=== PATIENT | female | born 1955 | race African-American/Black ===

== ENCOUNTER → 2017-04-13 | Outpatient (CLI) | payer BC ==
[2017-04-13 14:25] LABS: CLARITY URINE CLEAR (CLEAR); COLOR URINE YELLOW (YELLOW); GLUCOSE URINE NEGATIVE (NEGATIVE); KETONES URINE NEGATIVE (NEGATIVE); LEUKOCYTE ESTERASE URINE 1+ (NEGATIVE); NITRITE URINE NEGATIVE (NEGATIVE); OCCULT BLOOD URINE NEGATIVE (NEGATIVE); PH URINE 7.5 (4.5-8.0); PROTEIN URINE TRACE (NEGATIVE); SPECIFIC GRAVITY URINE 1.033 (1.005-1.030)
[2017-04-13 14:26] LABS: BASOPHILS % 0.6 % (0.0-2.0); EOSINOPHILS % 3.4 % (0.0-5.0); HEMATOCRIT. 35.4 % (36.0-48.0); HEMOGLOBIN. 11.4 g/dL (12.0-16.0); LYMPHOCYTES % 45.7 % (20.0-50.0); MEAN CORPUSCULAR HEMOGLOBIN 26.7 pg (28.0-32.0); MEAN CORPUSCULAR HGB CONC 32.1 g/dL (31.0-37.0); MEAN CORPUSCULAR VOLUME 83.4 fL (81.0-99.0); MEAN PLATELET VOLUME 8.8 fl (7.4-10.4); MONOCYTES % 7.9 % (2.0-8.0); NEUTROPHILS % 42.4 % (40.0-76.0); PLATELET 178 x1000/uL (130-400); RED BLOOD CELL COUNT 4.24 mill/uL (4.2-5.4); RED CELL DISTRIBUTION WIDTH 13.4 % (11.6-14.6); WHITE BLOOD COUNT 4.4 x1000/uL (4.5-11.0)
[2017-04-13 14:57] LABS: ANION GAP 8; CALCIUM 9.4 mg/dL (8.5-10.1); CARBON DIOXIDE 30 mEq/L (21-32); CHLORIDE 109 mEq/L (98-107); HDL CHOLESTEROL 56 mg/dL (40-59); INDEX HEMOLYSI 1 (1-3); INDEX ICTERIC 1 (1-4); INDEX LIPEMIC 1 (1-3); LDL CHOLESTEROL 94 mg/dL (5-100); THYROID STIMULATING HORMONE 0.31 uIU/mL (0.36-3.74); TRIGLYCERIDE 59 mg/dL (0-150); UREA NITROGEN BLOOD 11 mg/dL (7-21); eGFR > 60 mL/min (>60)
[2017-04-13 15:01] LABS: BACTERIA URINE TRACE; RBC URINE 0-2 /hpf (0-2); SQUAMOUS EPITHELIAL CELL URINE 1+ /lpf (RARE/1+); WBC URINE 0-2 /hpf (0-2)
== END | disposition home or self-care (01) ==
LOC: MAMMO 12:58
PROVIDERS: ATTEND Internal Medicine Nephrology
DX: Z12.31 Encounter for screening mammogram for malignant neoplasm of breast (principal)
CPT/HCPCS: 36415; 80048; 80061; 81001; 84443; 85025; G0202

== ENCOUNTER → 2017-04-18 | Outpatient (CLI) | payer BC | END | disposition home or self-care (01) | LOC: LAB 13:45 | PROVIDERS: ATTEND Internal Medicine Nephrology | DX: R06.02 Shortness of breath (principal) | CPT/HCPCS: 71010 ==

== ENCOUNTER 2017-10-26 10:42 | Emergency (ER) | payer BC ==
[~2017-10-26] VITALS: Ht 165.1 cm; Wt 70.0 kg
[2017-10-26] MEDS ORDERED: ACETAMINOPHEN WITH CODEINE 300/30MG TABLET PO STA (10:46)
[2017-10-26 11:28] LABS: BASOPHILS % 0.4 % (0.0-2.0); EOSINOPHILS % 1.4 % (0.0-5.0); HEMATOCRIT. 38.1 % (36.0-48.0); HEMOGLOBIN. 12.6 g/dL (12.0-16.0); LYMPHOCYTES % 32.2 % (20.0-50.0); MEAN CORPUSCULAR HEMOGLOBIN 27.7 pg (28.0-32.0); MEAN CORPUSCULAR VOLUME 83.6 fL (81.0-99.0); MONOCYTES % 7.8 % (2.0-8.0); NEUTROPHILS % 58.2 % (40.0-76.0); PLATELET 162 x1000/uL (130-400); RED BLOOD CELL COUNT 4.55 mill/uL (4.2-5.4); RED CELL DISTRIBUTION WIDTH 14.1 % (11.6-14.6)
[2017-10-26 11:33] LABS: CHLORIDE 98 mEq/L (98-107); PROTHROMBIN TIME 10.8 sec (9.4-11.6)
[2017-10-26 11:41] LABS: CARBON DIOXIDE 30 mEq/L (21-32)
[2017-10-26] MEDS ORDERED: POTASSIUM CHLORIDE 20MEQ TABLET SR PO ONE (11:45)
[2017-10-26 12:40] VITALS: BP 148/85
== END 2017-10-26 12:41 | disposition home or self-care (01) ==
LOC: ER 10:46
DX: S63.91XA Sprain of unspecified part of right wrist and hand, initial encounter (principal); R55 Syncope and collapse; I10 Essential (primary) hypertension; W19.XXXA Unspecified fall, initial encounter; Y93.89 Activity, other specified; Y92.89 Other specified places as the place of occurrence of the external cause; Y99.8 Other external cause status
CPT/HCPCS: 36415; 73130; 80053; 85025; 85610; 93005; 99285; Z7610

== ENCOUNTER 2017-10-30 21:53 | Inpatient (IN) | payer BC ==
[~2017-10-30] VITALS: Ht 160 cm; Wt 71.4 kg
[2017-10-30] MEDS ORDERED: SODIUM CHLORIDE 0.9% 1,000 ML IV ONE (22:39)
[2017-10-30 22:59] LABS: BASOPHILS % 0.8 % (0.0-2.0); EOSINOPHILS % 1.7 % (0.0-5.0); HEMATOCRIT. 34.2 % (36.0-48.0); HEMOGLOBIN. 11.1 g/dL (12.0-16.0); LYMPHOCYTES % 34.2 % (20.0-50.0); MEAN CORPUSCULAR HEMOGLOBIN 26.9 pg (28.0-32.0); MEAN CORPUSCULAR VOLUME 83.1 fL (81.0-99.0); MEAN PLATELET VOLUME 8.7 fl (7.4-10.4); MONOCYTES % 7.6 % (2.0-8.0); NEUTROPHILS % 55.7 % (40.0-76.0); PLATELET 145 x1000/uL (130-400); RED BLOOD CELL COUNT 4.11 mill/uL (4.2-5.4); RED CELL DISTRIBUTION WIDTH 13.9 % (11.6-14.6)
[2017-10-30 23:02] LABS: CHLORIDE 103 mEq/L (98-107)
[2017-10-30 23:08] LABS: CARBON DIOXIDE 29 mEq/L (21-32)
[2017-10-30 23:12] LABS: TROPONIN I < 0.02 ng/mL (0.00-0.04)
[2017-10-31] VITALS (9 sets, daily range): BP systolic 131–159; BP diastolic 64–94
[2017-10-31] MEDS ORDERED: SODIUM CHLORIDE 0.9% 1,000 ML IV SCH (00:25)
[2017-10-31] MEDS ORDERED: TRIA1TAB92 PO (09:46)
[2017-10-31] MEDS ORDERED: DORZ10DR7 EACHEYE (09:48)
[2017-10-31] MEDS ORDERED: IBUP-2028 PO (09:50)
[2017-10-31] MEDS ORDERED: MORPHINE SULFATE 2 MG/ML CPJ (NOT FOR IM USE) IV PRN ×2 (10:00→12:30)
[2017-10-31] MEDS ORDERED: ACETAMINOPHEN 325MG TABLET PO PRN (12:30)
[2017-10-31] MEDS ORDERED: LORAZEPAM 0.5MG TABLET PO PRN (12:30)
[2017-10-31] MEDS ORDERED: CLONIDINE 0.1MG TABLET PO PRN (12:30)
[2017-10-31] MEDS ORDERED: ONDANSETRON HCL 4MG/2ML VIAL IV PRN (12:30)
[2017-10-31] MEDS ORDERED: HYDROCODONE/ACETAMINOPHEN 5/325MG TABLET PO PRN (12:30)
[2017-10-31 12:31] LABS: CREATINE KINASE 201 IU/L (26-192); TROPONIN I < 0.02 ng/mL (0.00-0.04)
[2017-10-31] MEDS ORDERED: IBUPROFEN 400MG TABLET PO PRN (13:15)
[2017-10-31] MEDS ORDERED: POTASSIUM CHLORIDE 20MEQ TABLET SR PO NR (13:30)
[2017-10-31] MEDS: THIAMINE HCL 100MG TABLET PO SCH (14:28)
[2017-10-31] MEDS: ENOXAPARIN 40MG/0.4ML SYR SUBCUT SCH (14:30)
[2017-10-31] MEDS ORDERED: TRIAMTERENE/HYDROCHLOROTHIAZID 75/50MG TABLET PO SCH (15:00)
[2017-10-31] MEDS ORDERED: DORZOLAMIDE 2% OPHTH 10 ML BOTTLE EACHEYE SCH (15:00)
[2017-10-31] MEDS ORDERED: REGADENOSON 0.4 MG/5 ML IV NR (15:30)
[2017-10-31] MEDS ORDERED: TRIAMTERENE/HYDROCHLOROTHIAZIDE 37.5/25MG CAPSULE PO SCH (15:45)
[2017-10-31] MEDS: ASPIRIN 81MG EC TABLET PO SCH (16:45)
[2017-10-31 18:23] LABS: CLARITY URINE CLEAR (CLEAR); COLOR URINE YELLOW (YELLOW); GLUCOSE URINE NEGATIVE (NEGATIVE); KETONES URINE NEGATIVE (NEGATIVE); LEUKOCYTE ESTERASE URINE NEGATIVE (NEGATIVE); NITRITE URINE NEGATIVE (NEGATIVE); OCCULT BLOOD URINE NEGATIVE (NEGATIVE); PROTEIN URINE NEGATIVE (NEGATIVE); SPECIFIC GRAVITY URINE 1.012 (1.005-1.030); UROBILINOGEN URINE 0.2 E.U./dL (0.2-1.0)
[2017-10-31 19:24] LABS: *AMPHETAMINES SCREEN URINE NEGATIVE (NEGATIVE); *BARBITURATES SCREEN URINE NEGATIVE (NEGATIVE); *BENZODIAZEPINES SCREEN URINE NEGATIVE (NEGATIVE); *COCAINE SCREEN URINE NEGATIVE (NEGATIVE); CANNABINOID URINE SCREEN NEGATIVE (NEGATIVE); METHADONE URINE SCREEN NEGATIVE (NEGATIVE); OPIATES URINE SCREEN NEGATIVE (NEGATIVE); PHENCYCLIDINE URINE SCREEN NEGATIVE (NEGATIVE)
[2017-10-31] MEDS: AMLODIPINE 5MG TABLET PO SCH (21:11)
[2017-10-31] MEDS: DORZOLAMIDE 2% OPHTH 10 ML BOTTLE EACHEYE SCH (22:33)
[2017-10-31] MEDS ORDERED: IOHEXOL-300 100 ML BOTTLE ONE (23:15)
[2017-11-01] VITALS (7 sets, daily range): BP systolic 128–144; BP diastolic 78–90
[2017-11-01] MEDS: DORZOLAMIDE 2% OPHTH 10 ML BOTTLE EACHEYE SCH (06:21)
[2017-11-01 07:23] LABS: BASOPHILS % 0.6 % (0.0-2.0); EOSINOPHILS % 2.6 % (0.0-5.0); HEMATOCRIT. 34.6 % (36.0-48.0); HEMOGLOBIN. 11.4 g/dL (12.0-16.0); LYMPHOCYTES % 41.8 % (20.0-50.0); MEAN CORPUSCULAR HEMOGLOBIN 27.5 pg (28.0-32.0); MEAN CORPUSCULAR VOLUME 83.3 fL (81.0-99.0); MEAN PLATELET VOLUME 9.3 fl (7.4-10.4); MONOCYTES % 7.4 % (2.0-8.0); NEUTROPHILS % 47.6 % (40.0-76.0); PLATELET 150 x1000/uL (130-400); RED BLOOD CELL COUNT 4.16 mill/uL (4.2-5.4); RED CELL DISTRIBUTION WIDTH 13.7 % (11.6-14.6)
[2017-11-01 08:19] LABS: CARBON DIOXIDE 29 mEq/L (21-32); CHLORIDE 108 mEq/L (98-107)
[2017-11-01 08:26] LABS: HDL CHOLESTEROL 57 mg/dL (40-59); LDL CHOLESTEROL 71 mg/dL (5-100); TROPONIN I < 0.02 ng/mL (0.00-0.04)
[2017-11-01] MEDS: ASPIRIN 81MG EC TABLET PO SCH (08:58)
[2017-11-01] MEDS: THIAMINE HCL 100MG TABLET PO SCH (08:59)
[2017-11-01] MEDS ORDERED: FERROUS SULFATE 325MG TABLET PO SCH (09:00)
[2017-11-01] MEDS: AMLODIPINE 5MG TABLET PO SCH (09:05)
[2017-11-01] MEDS: ENOXAPARIN 40MG/0.4ML SYR SUBCUT SCH (09:07)
[2017-11-01] MEDS ORDERED: REGADENOSON 0.4 MG/5 ML IV ONE (11:15)
== END 2017-11-01 15:10 | disposition home or self-care (01) | DRG 74 ==
LOC: ER 22:32 → 5WST 10-31 00:28 → EDBEDREQTM 10-31 00:31 → EDBEDREQ 10-31 00:31 → ENRESERV 10-31 06:43
PROVIDERS: ADMIT Internal Medicine Nephrology; ATTEND Internal Medicine Nephrology
DX: G90.8 Other disorders of autonomic nervous system (principal); I11.9 Hypertensive heart disease without heart failure; E11.9 Type 2 diabetes mellitus without complications; I44.0 Atrioventricular block, first degree; R53.83 Other fatigue; E87.6 Hypokalemia; R53.1 Weakness; I25.9 Chronic ischemic heart disease, unspecified; M17.0 Bilateral primary osteoarthritis of knee; Z91.81 History of falling
CPT/HCPCS: 36415; 70470; 78452; 80048; 80053; 80061; 80305; 81003; 82550; 82553; 83690; 83735; 84443; 84484; 85025; 93005; 93017; 96360; 99285; A9500; J1650; J2785; J7030; Q9967

== ENCOUNTER 2017-12-19 11:28 | Emergency (ER) | payer BC ==
[~2017-12-19] VITALS: Ht 165.1 cm; Wt 71.0 kg
[~2017-12-19 11:28] MED LIST: DORZ10DR7 EACHEYE; IBUP-2028 PO; TRIA1TAB92 PO
[2017-12-19 15:52] VITALS: BP 122/84
== END 2017-12-19 15:57 | disposition home or self-care (01) ==
LOC: ER 13:23
DX: F41.9 Anxiety disorder, unspecified (principal); E11.9 Type 2 diabetes mellitus without complications; I10 Essential (primary) hypertension
CPT/HCPCS: 93005; 99284

== ENCOUNTER → 2018-02-21 | Outpatient (CLI) | payer BC | END | disposition home or self-care (01) | LOC: MRI 09:58 | PROVIDERS: ATTEND Internal Medicine Nephrology | DX: M48.02 Spinal stenosis, cervical region (principal) | CPT/HCPCS: 72141 ==

== ENCOUNTER → 2018-06-26 | Outpatient (CLI) | payer BC ==
[~2018-06-26] MED LIST changes: -DORZ10DR7 EACHEYE; +DORZ10DR8 EACHEYE
[2018-06-26 11:01] LABS: BASOPHILS % 0.7 % (0.0-2.0); EOSINOPHILS % 2.2 % (0.0-5.0); HEMATOCRIT. 31.7 % (36.0-48.0); HEMOGLOBIN. 10.7 g/dL (12.0-16.0); LYMPHOCYTES % 54.3 % (20.0-50.0); MEAN CORPUSCULAR HEMOGLOBIN 28.4 pg (28.0-32.0); MEAN CORPUSCULAR VOLUME 84.5 fL (81.0-99.0); MEAN PLATELET VOLUME 8.1 fl (7.4-10.4); MONOCYTES % 7.8 % (2.0-8.0); PLATELET 174 x1000/uL (130-400); RED BLOOD CELL COUNT 3.75 mill/uL (4.2-5.4); RED CELL DISTRIBUTION WIDTH 15.3 % (11.6-14.6)
[2018-06-26 11:02] LABS: CLARITY URINE CLEAR (CLEAR); COLOR URINE YELLOW (YELLOW); KETONES URINE NEGATIVE (NEGATIVE); LEUKOCYTE ESTERASE URINE NEGATIVE (NEGATIVE); NITRITE URINE NEGATIVE (NEGATIVE); OCCULT BLOOD URINE NEGATIVE (NEGATIVE); PH URINE 8.5 (4.5-8.0); PROTEIN URINE TRACE (NEGATIVE); SPECIFIC GRAVITY URINE 1.026 (1.005-1.030); UROBILINOGEN URINE 0.2 E.U./dL (0.2-1.0)
[2018-06-26 11:24] LABS: CHLORIDE 108 mEq/L (98-107)
[2018-06-26 11:45] LABS: VITAMIN B12 SERUM 997 pg/mL (211-911)
== END | disposition home or self-care (01) ==
LOC: LAB 10:19
PROVIDERS: ATTEND Internal Medicine Nephrology
DX: J03.90 Acute tonsillitis, unspecified (principal); E11.9 Type 2 diabetes mellitus without complications; I11.0 Hypertensive heart disease with heart failure; I50.9 Heart failure, unspecified
CPT/HCPCS: 36415; 80053; 80076; 81003; 82607; 85025

== ENCOUNTER → 2019-01-30 | Outpatient (CLI) | payer BC ==
[2019-01-30 08:25] LABS: CLARITY URINE CLEAR (CLEAR); COLOR URINE YELLOW (YELLOW); KETONES URINE NEGATIVE (NEGATIVE); LEUKOCYTE ESTERASE URINE NEGATIVE (NEGATIVE); NITRITE URINE NEGATIVE (NEGATIVE); OCCULT BLOOD URINE NEGATIVE (NEGATIVE); PROTEIN URINE NEGATIVE (NEGATIVE); SPECIFIC GRAVITY URINE 1.025 (1.005-1.030); UROBILINOGEN URINE 0.2 E.U./dL (0.2-1.0)
[2019-01-30 08:31] LABS: BASOPHILS % 0.7 % (0.0-2.0); EOSINOPHILS % 1.7 % (0.0-5.0); HEMATOCRIT. 35.9 % (36.0-48.0); HEMOGLOBIN. 11.6 g/dL (12.0-16.0); LYMPHOCYTES % 45.6 % (20.0-50.0); MEAN CORPUSCULAR HEMOGLOBIN 27.2 pg (28.0-32.0); MEAN CORPUSCULAR VOLUME 83.7 fL (81.0-99.0); MEAN PLATELET VOLUME 9.2 fl (7.4-10.4); MONOCYTES % 6.3 % (2.0-8.0); NEUTROPHILS % 45.7 % (40.0-76.0); PLATELET 163 x1000/uL (130-400); RED BLOOD CELL COUNT 4.28 mill/uL (4.2-5.4); RED CELL DISTRIBUTION WIDTH 13.1 % (11.6-14.6)
[2019-01-30 08:32] LABS: CHLORIDE 107 mEq/L (98-107)
[2019-01-30 11:31] LABS: VITAMIN B12 SERUM 1118 pg/mL (211-911)
== END | disposition home or self-care (01) ==
LOC: LAB 07:47
PROVIDERS: ATTEND Internal Medicine Nephrology
DX: J30.1 Allergic rhinitis due to pollen (principal)
CPT/HCPCS: 36415; 80048; 82306; 82607; 83735; 84443

== ENCOUNTER → 2019-06-12 | Outpatient (CLI) | payer BC ==
[2019-06-12 17:24] LABS: CLARITY URINE CLEAR (CLEAR); COLOR URINE YELLOW (YELLOW); KETONES URINE NEGATIVE (NEGATIVE); LEUKOCYTE ESTERASE URINE 1+ (NEGATIVE); NITRITE URINE NEGATIVE (NEGATIVE); OCCULT BLOOD URINE NEGATIVE (NEGATIVE); PROTEIN URINE NEGATIVE (NEGATIVE); SPECIFIC GRAVITY URINE 1.021 (1.005-1.030); UROBILINOGEN URINE 0.2 E.U./dL (0.2-1.0)
[2019-06-12 17:43] LABS: BASOPHILS % 0.6 % (0.0-2.0); CHLORIDE 104 mEq/L (98-107); HEMATOCRIT. 38.1 % (36.0-48.0); HEMOGLOBIN. 12.4 g/dL (12.0-16.0); LYMPHOCYTES % 48.3 % (20.0-50.0); MEAN CORPUSCULAR HEMOGLOBIN 27.3 pg (28.0-32.0); MEAN CORPUSCULAR VOLUME 83.6 fL (81.0-99.0); MEAN PLATELET VOLUME 8.9 fl (7.4-10.4); MONOCYTES % 8.4 % (2.0-8.0); NEUTROPHILS % 40.7 % (40.0-76.0); PLATELET 174 x1000/uL (130-400); RED BLOOD CELL COUNT 4.56 mill/uL (4.2-5.4); RED CELL DISTRIBUTION WIDTH 13.9 % (11.6-14.6)
[2019-06-12 17:50] LABS: LDL CHOLESTEROL 98 mg/dL (5-100)
[2019-06-12 17:51] LABS: HDL CHOLESTEROL 66 mg/dL (40-59)
[2019-06-12 18:20] LABS: VITAMIN B12 SERUM 1205 pg/mL (211-911)
== END | disposition home or self-care (01) ==
LOC: LAB 16:48
PROVIDERS: ATTEND Internal Medicine Nephrology
DX: I10 Essential (primary) hypertension (principal); E11.9 Type 2 diabetes mellitus without complications
CPT/HCPCS: 36415; 80061; 82607; 83036

== ENCOUNTER → 2019-06-14 | Outpatient (CLI) | payer BC | END | disposition home or self-care (01) | LOC: MRI 07:52 | PROVIDERS: ATTEND Internal Medicine Nephrology | DX: M17.11 Unilateral primary osteoarthritis, right knee (principal); M54.12 Radiculopathy, cervical region | CPT/HCPCS: 72141; 73562 ==

== ENCOUNTER → 2019-08-17 | Outpatient (CLI) | payer BC | END | disposition home or self-care (01) | LOC: US 14:40 | PROVIDERS: ATTEND Internal Medicine Nephrology | DX: E04.2 Nontoxic multinodular goiter (principal) | CPT/HCPCS: 76536 ==

== ENCOUNTER → 2019-08-31 | Outpatient (CLI) | payer BC ==
[2019-08-31 16:06] LABS: BASOPHILS % 0.7 % (0.0-2.0); EOSINOPHILS % 3.1 % (0.0-5.0); HEMATOCRIT. 34.9 % (36.0-48.0); HEMOGLOBIN. 11.3 g/dL (12.0-16.0); LYMPHOCYTES % 34.5 % (20.0-50.0); MEAN CORPUSCULAR HEMOGLOBIN 27.3 pg (28.0-32.0); MEAN CORPUSCULAR VOLUME 84.2 fL (81.0-99.0); MEAN PLATELET VOLUME 9.8 fl (7.4-10.4); MONOCYTES % 8.2 % (2.0-8.0); NEUTROPHILS % 53.5 % (40.0-76.0); PLATELET 146 x1000/uL (130-400); RED BLOOD CELL COUNT 4.14 mill/uL (4.2-5.4); RED CELL DISTRIBUTION WIDTH 14.3 % (11.6-14.6)
[2019-08-31 16:34] LABS: CHLORIDE 110 mEq/L (98-107)
[2019-08-31 16:40] LABS: PHOSPHORUS 3.1 mg/dL (2.5-4.9)
[2019-08-31 16:41] LABS: HDL CHOLESTEROL 69 mg/dL (40-59)
[2019-08-31 16:42] LABS: LDL CHOLESTEROL 85 mg/dL (5-100)
[2019-08-31 16:44] LABS: CREATINE KINASE 336 IU/L (26-192)
[2019-08-31 16:45] LABS: TOTAL IRON BINDING CAPACITY 353 ug/dL (250-450)
[2019-08-31 16:47] LABS: T4 FREE 1.09 ng/dL (0.76-1.46)
[2019-08-31 17:09] LABS: FOLIC ACID (FOLATE) SERUM >20 ng/mL ng/mL (>5.38)
[2019-08-31 17:13] LABS: FERRITIN 39 ng/mL (10-291)
[2019-08-31 17:19] LABS: VITAMIN B12 SERUM 1108 pg/mL (211-911)
[2019-09-02 09:09] LABS: RF PROFILE 11.4 IU/mL (0.0-13.9)
[2019-09-04 09:06] LABS: VITAMIN D 25-OH 24.8 ng/mL (30.0-100.0)
[2019-09-04 19:06] LABS: CCP IgG/IgA PROFILE 8 units (0-19)
[2019-09-05 06:10] LABS: ANTI-NUCLEAR ANTIBODIES DIRECT Negative (Negative); METHYLMALONIC ACID 94 nmol/L (0-378)
== END | disposition home or self-care (01) ==
LOC: LAB 15:12
PROVIDERS: ATTEND Internal Medicine Endocrinology, Diabetes & Metabolism
DX: E11.9 Type 2 diabetes mellitus without complications (principal); R53.83 Other fatigue; D64.9 Anemia, unspecified; E55.9 Vitamin D deficiency, unspecified
CPT/HCPCS: 36415; 80061; 82306; 82550; 82607; 82728; 82746; 83036; 83540; 83550; 83735; 83921; 83970; 84100; 84439; 84443; 85651; 86038; 86140; 86200; 86431; 86800

== ENCOUNTER → 2019-09-13 | Outpatient (CLI) | payer BC ==
[~2019-09-13] MED LIST changes: +LIDOCAINE HCL 1% 20ML VIAL (Pyxis) INJ ONE; +SODIUM BICARBONATE 4% (2.4MEQ) 5ML VIAL IV ONE
== END | disposition home or self-care (01) ==
LOC: US 13:08
PROVIDERS: ATTEND Internal Medicine Endocrinology, Diabetes & Metabolism
DX: E04.2 Nontoxic multinodular goiter (principal); Z79.899 Other long term (current) drug therapy
CPT/HCPCS: 10005; 88172; 88173; J3490; Z7610

== ENCOUNTER 2020-07-02 15:56 | Emergency (ER) | payer BC, MEDICARE ==
[~2020-07-02] VITALS: Ht 195.6 cm; Wt 68.0 kg
[~2020-07-02 15:56] MED LIST changes: -LIDOCAINE HCL 1% 20ML VIAL (Pyxis) INJ ONE; -SODIUM BICARBONATE 4% (2.4MEQ) 5ML VIAL IV ONE
[2020-07-02 17:43] LABS: BASOPHILS % 0.5 % (0.0-2.0); EOSINOPHILS % 1.2 % (0.0-5.0); HEMATOCRIT. 38.1 % (36.0-48.0); HEMOGLOBIN. 12.6 g/dL (12.0-16.0); LYMPHOCYTES % 33.4 % (20.0-50.0); MEAN CORPUSCULAR HEMOGLOBIN 27.2 pg (28.0-32.0); MEAN CORPUSCULAR VOLUME 82.3 fL (81.0-99.0); MEAN PLATELET VOLUME 9.7 fl (7.4-10.4); MONOCYTES % 8.7 % (2.0-8.0); NEUTROPHILS % 56.2 % (40.0-76.0); PLATELET 159 x1000/uL (130-400); RED BLOOD CELL COUNT 4.63 mill/uL (4.2-5.4); RED CELL DISTRIBUTION WIDTH 14.3 % (11.6-14.6)
[2020-07-02 17:47] LABS: CHLORIDE 104 mEq/L (98-107)
[2020-07-02] MEDS: POTASSIUM CHLORIDE 20MEQ TABLET SR PO NR (19:28)
[2020-07-02 23:08] VITALS: BP 140/87
== END 2020-07-02 23:09 | disposition home or self-care (01) ==
LOC: ER 16:14
DX: R00.2 Palpitations (principal); E87.6 Hypokalemia; I10 Essential (primary) hypertension; E11.9 Type 2 diabetes mellitus without complications; E03.9 Hypothyroidism, unspecified
CPT/HCPCS: 36415; 71045; 80053; 83880; 84443; 84484; 85025; 99284

== ENCOUNTER 2020-08-27 17:29 | Inpatient (IN) | payer MEDICARE ==
[~2020-08-27] VITALS: Ht 165.1 cm; Wt 80.3 kg
[2020-08-27 18:37] LABS: BASOPHILS % 0.8 % (0.0-2.0); EOSINOPHILS % 1.2 % (0.0-5.0); HEMOGLOBIN. 10.1 g/dL (12.0-16.0); MEAN PLATELET VOLUME 9.6 fl (7.4-10.4); MONOCYTES % 5.6 % (2.0-8.0); NEUTROPHILS % 68.4 % (40.0-76.0); PLATELET 177 x1000/uL (130-400); RED BLOOD CELL COUNT 3.73 mill/uL (4.2-5.4)
[2020-08-27 18:40] LABS: CHLORIDE 109 mEq/L (98-107)
[2020-08-27] MEDS ORDERED: ASPIRIN 325MG TABLET PO ONE (19:00)
[2020-08-27] MEDS ORDERED: ASPIRIN 81MG TABLET PO ONE (19:16)
[2020-08-27 19:39] LABS: *AMPHETAMINES SCREEN URINE NEGATIVE (NEGATIVE); *BARBITURATES SCREEN URINE NEGATIVE (NEGATIVE); *BENZODIAZEPINES SCREEN URINE NEGATIVE (NEGATIVE); *COCAINE SCREEN URINE NEGATIVE (NEGATIVE); METHADONE URINE SCREEN NEGATIVE (NEGATIVE); OPIATES URINE SCREEN NEGATIVE (NEGATIVE)
[2020-08-27 19:40] LABS: CANNABINOID URINE SCREEN NEGATIVE (NEGATIVE); PHENCYCLIDINE URINE SCREEN NEGATIVE (NEGATIVE)
[2020-08-27] MEDS ORDERED: ONDANSETRON HCL 4MG/2ML INJ IV PRN (21:15)
[2020-08-27] MEDS ORDERED: ACETAMINOPHEN 325MG TABLET PO PRN (21:15)
[2020-08-27] MEDS ORDERED: MAGNESIUM/ALUMINUM HYDROXIDE/SIMETHICONE 30ML UDC PO PRN (21:15)
[2020-08-27] MEDS ORDERED: CLONIDINE 0.1MG TABLET PO PRN (21:15)
[2020-08-27] MEDS ORDERED: MORPHINE SULFATE 2 MG/ML CPJ (NOT FOR IM USE) IV PRN (21:15)
[2020-08-27] MEDS: ENOXAPARIN 40MG/0.4ML SYR SUBCUT SCH (22:32)
[2020-08-27 23:18] LABS: CREATINE KINASE 204 IU/L (26-192); CREATINE KINASE MB FRACTION < 1.0 ng/mL (0.5-3.6)
[2020-08-27 23:36] VITALS: BP 134/89
[2020-08-28] VITALS: BP 134/89
[2020-08-28] MEDS ORDERED: ASPI-1158 PO (01:12)
[2020-08-28] MEDS ORDERED: DEXTROSE 50% WATER 50ML SYRINGE IV PRN (01:15)
[2020-08-28 04:00] VITALS: BP 122/70
[2020-08-28 06:44] LABS: BASOPHILS % 0.5 % (0.0-2.0); EOSINOPHILS % 1.7 % (0.0-5.0); HEMATOCRIT. 29.1 % (36.0-48.0); HEMOGLOBIN. 9.5 g/dL (12.0-16.0); LYMPHOCYTES % 42.9 % (20.0-50.0); MEAN CORPUSCULAR HEMOGLOBIN 26.8 pg (28.0-32.0); MEAN CORPUSCULAR VOLUME 82.2 fL (81.0-99.0); MEAN PLATELET VOLUME 9.7 fl (7.4-10.4); MONOCYTES % 9.7 % (2.0-8.0); NEUTROPHILS % 45.2 % (40.0-76.0); PLATELET 154 x1000/uL (130-400); RED BLOOD CELL COUNT 3.55 mill/uL (4.2-5.4); RED CELL DISTRIBUTION WIDTH 13.7 % (11.6-14.6)
[2020-08-28 07:13] LABS: CHLORIDE 110 mEq/L (98-107)
[2020-08-28 07:25] LABS: CREATINE KINASE 176 IU/L (26-192); LDL CHOLESTEROL 58 mg/dL (5-100)
[2020-08-28] MEDS: BLOOD SUGAR DIAGNOSTIC STRIP TEST SCH ×4 (07:25→20:11)
[2020-08-28 07:27] LABS: HDL CHOLESTEROL 57 mg/dL (40-59)
[2020-08-28 07:30] LABS: CREATINE KINASE MB FRACTION 1.3 ng/mL (0.5-3.6)
[2020-08-28] MEDS: INSULIN LISPRO 100 UNITS/ML SUBCUT SCH ×4 (07:50→20:12)
[2020-08-28 08:01] VITALS: BP 123/68
[2020-08-28 11:11] LABS: T4 FREE 0.97 ng/dL (0.76-1.46)
[2020-08-28 11:55] VITALS: BP 143/67
[2020-08-28 16:07] VITALS: BP 117/57
[2020-08-28 20:16] VITALS: BP 113/72
[2020-08-28] MEDS: ENOXAPARIN 40MG/0.4ML SYR SUBCUT SCH (20:28)
[2020-08-28] MEDS ORDERED: ATORVASTATIN CALCIUM 40MG TABLET PO SCH (21:00)
[2020-08-29] VITALS: BP 127/72
[2020-08-29 04:00] VITALS: BP 140/76
[2020-08-29] MEDS: BLOOD SUGAR DIAGNOSTIC STRIP TEST SCH ×2 (06:22→12:20)
[2020-08-29] MEDS: INSULIN LISPRO 100 UNITS/ML SUBCUT SCH ×2 (07:41→12:50)
[2020-08-29 08:00] VITALS: BP 140/68
== END 2020-08-29 15:27 | disposition home or self-care (01) | DRG 206 ==
LOC: ER 17:29 → 6WST 20:44 → ENRESERV 22:12 → EDBEDREQ 22:35
PROVIDERS: ADMIT Hospitalist; ATTEND Hospitalist
DX: M94.0 Chondrocostal junction syndrome [Tietze] (principal); I10 Essential (primary) hypertension; E11.9 Type 2 diabetes mellitus without complications; D64.9 Anemia, unspecified; J45.909 Unspecified asthma, uncomplicated; E04.9 Nontoxic goiter, unspecified; E03.9 Hypothyroidism, unspecified; M25.519 Pain in unspecified shoulder; M54.2 Cervicalgia; Z82.49 Family history of ischemic heart disease and other diseases of the circulatory system; Z79.82 Long term (current) use of aspirin; Z79.899 Other long term (current) drug therapy; R00.2 Palpitations
CPT/HCPCS: 36415; 71045; 80053; 80061; 80305; 80329; 82550; 82553; 82962; 83036; 83880; 84439; 84443; 84484; 85025; 93005; 93970; 99285; J1650

== ENCOUNTER → 2022-04-01 | Outpatient (CLI) | payer OTHER ==
[~2022-04-01] MED LIST changes: +ASPI-1406 PO
== END | disposition home or self-care (01) ==
LOC: MRI 16:56
DX: M17.0 Bilateral primary osteoarthritis of knee (principal); M25.762 Osteophyte, left knee; M25.761 Osteophyte, right knee; M25.862 Other specified joint disorders, left knee; M25.861 Other specified joint disorders, right knee
CPT/HCPCS: 73221; 73562